=== PATIENT | male | born 1980 | race Caucasian/White ===

== ENCOUNTER 2021-05-17 10:09 | Emergency (ER) | payer SELFPAY ==
--- OUTSIDE RECORDS SUMMARY | 2021-05-17 10:12 | XMS REPORT | Continuity of Care Document ---
:1980 Author Organization [facility] t Address [address] [place] [address] Care Team Providers Name Role Phone Ramu MARQUEZ Attending Clinician Unavailable LIAM Attending Clinician Unavailable Bladimir WEBB Admitting Clinician Unavailable LIAM Admitting Clinician Unavailable Problems This patient has no known problems. Allergies, Adverse Reactions, Alerts This patient has no known allergies or adverse reactions. Medications This patient has no known medications. Procedures This patient has no known procedures. Encounters Start End Encounter Admission Attending Care Care Encounter Source Date/Time Date/Time Type Type Clinicians Facility Department ID 2021-04-26 [facility] [id number] [facility] 02:44: Health 2021-04-26 [facility] [id number] [facility] 02:44: S Health Results Test Description Test Time Test Comments Results Result Sour e Comments RIBS 2019-03-04 [facility] 07:35:[address] [id number] IMAGING REPORTPatient Name: JUSTIN HOUGH MDate of Service: [id number]: 39 Sex: M Order #: [id number] Room: QERDOB: 1980 X-Ray Number: [id number] Record Number: [id number] Hospital Number: [id number] Physician: Tegan LOCKE Physician: Alexandra LOCKE left RIBS.03/04/2019 1:09 AMHistory: Altercation.Technique: PA and lateral chest projections. 4 left rib views.Findings: PA and lateral views of the chest demonstrate normal heart sizeand clear lungs. No infiltrates or abnormalities are depicted. The osseousstructures appear intact.Impression:No acute-appearing cardiopulmonary abnormalities. No evidence of ribinjury.Electronicall y Signed By: Mitesh Marsh M.D., 03/04/2019 7:33 AMLegally authenticated by BEN Hopkins 2019-03-04 07:33:19 CHEST XR 2 VIEWS 2019-03-04 [facility] 07:35:[address] [id number] IMAGING REPORTPatient Name: JUSTIN HOUGH of Service: [id number]: 39 Sex: M Order #: [id number] Room: QERDOB: 1980 X-Ray Number: [id number] Record Number: [id number] Hospital Number: [id number] Physician: Tegan LOCKE Physician: Alexandra LOCKE left RIBS.03/04/2019 1:09 AMHistory: Altercation.Technique: PA and lateral chest projections. 4 left rib views.Findings: PA and lateral views of the chest demonstrate normal heart sizeand clear lungs. No infiltrates or abnormalities are depicted. The osseousstructures appear intact.Impression:No acute-appearing cardiopulmonary abnormalities. No evidence of ribinjury.Electronicall y Signed By: Mitesh Marsh M.D., 03/04/2019 7:33 AMLegally authenticated by BEN Hopkins 2019-03-04 07:33:19 CORONARY RISK 2019-02-13 05:12:00 Test Item Value Reference Range Interpretation Comme nts Triglycerides (test code = TRIG) 711 mg/dl 0-149 H Trig. Interpretation Guide: Normal: < 150 m g/dl Borderline High : 150 - 199 mg/dl High: 200 - 499 mg/dl Very High: >= 5 00 mg/dl Cholesterol (test code = CHOL) 170 mg/dl 0-200 HDL (test code = HDL) 31 mg/dl 35-86 L dLDL (test code = DILDL) 71 mg/dl 0-99 Dir ect LDL Intrepretations: Optimal: <100 mg/dl Suspect: 100 - 129 mg/dl Borderline: 130 - 159 mg/dl High: 160 - 189 mg/dl Ve ry High: >190 mg/dl Risk Factor (test code = RFACT) 5.5 0.0-5.0 H Risk Factor Men Women Risk Factor 3.4 3.3 1/ 2 Average 5.0 4.4 Average 9.6 7.1 2X A verage 24.0 11.0 3X Average vLDL (test code = VLDL) 142 mg/dl 30-60 H MRA HEAD W/O [id number] 14:02:26Episode of confusion, numbness in feet,hands and lips; HeadachesProcedure: MRA HEAD W/O CONTRASTOrder Date: 02/12/2019 7:00 AMOrdering Provider: DR NIETO [facility]OMARTHApromedica mon[facility] hospitalical Indication: [id number]: Cerebrovascular accidentComparison: NoneTechnique: 3-D [id number] MRA of the brain was obtained without theadministration of IV contrast.Findings:The petrous, cavernous, and supraclinoid internal carotid artery segments have anormal appearance bilaterally.The anteriorcerebral arteries are patent without stenosis.The middle cerebral arteries are patent without stenosis.The distal vertebral arteries are patent without stenosis.The basilar artery is patent without stenosis.The superior cerebellar arteries are patent without stenosis.The posterior cerebral arteries are patent without stenosis.There is no intracranial aneurysm. There is no arteriovenous shunting.Impression: Negative MRA of the brain.This final report was electronically signed by Dr Aquiles Macedo MD 02/12/20191:56 PMDictated By: AQUILES MACEDO.Date: 02/12/2019 13:56MRI BRAIN W/O [id number] 13:58:26 Episode of confusion, numbness in feet,hands and lips; HeadachesProcedure: MRI BRAIN W/O CONTRASTOrder Date: 02/12/2019 7:00 AMOrdering Provider: DR EMILIA GRANTpromedica monroe regional hospitalradha Indication: [id number]: Cerebrovascular accidentComparison: CT brain February 11, 2019Technique: Multiplanar MRI of the brain was obtained without the administrationof IV contrast.Findings:Ventricular size and configuration are normal. There is no midline shift orhydrocephalus.There is normal signal within the cortical salazar matter, subcortical whitematter, and periventricular white matter.Thereis normal signal within the deep salazar matter nuclei. There is normalsignal within the cerebellum. There is normal signal within the brainstem.There is no evidence of an acute infarct.There is no parenchymal hemorrhage.The pituitary gland is normal in size. There are no pineal masses.There are normal intracranial vascular flow voids.The foramen magnum is normal.The orbits are intact.Mild mucosal thickening in each maxillary sinus.There is otherwise normal signal within the paranasal sinuses.IMPRESSION :1. Negative MRI of the brain without the administration of IV contrast.This final report was electronically signed by Dr Aquiles Macedo MD 02/12/20191:51 PMDictated By: AQUILES MACEDODate: 02/12/2019 13:51US CAROTID BILAT Doppler 2019-02-12 06:24:08Procedure: US CAROTID BILAT DopplerOrder Date: 02/11/2019 11:13 PMOrdering Provider: DR NIETO [facility] Indication: [id number]: Cerebrovascular accidentComparison: NoneTECHNIQUE : Real-time cerebrovascular ultrasonography was obtained from sternalnotch to the angle of the mandible bilaterally utilizing salazar scale, color flowand spectral Doppler analysis. Systolic velocity ratios were calculatedforinternal carotid artery to common carotid artery bilaterally.FINDINGS:RIGHT CAROTID BIFURCATION: No significant atherosclerotic plaque. Peak systolicand end-diastolic velocities in the right internal carotid artery are 87 and 43cm/s. Internal carotid/common carotid ratio is 1.0. Right vertebral flow isantegrade.LEFT CAROTID BIFURCATION: No significant atherosclerotic plaque. Peak systolicand end-diastolic velocities in the left internal carotid artery are 86 and 37cm/s. Internal carotid/common c arotid ratio is 0.9. Left vertebral flow isantegrade.IMPRESSION:1. No significant atherosclerotic plaque in each carotid bulb and ICA origin.2. There is no significant stenosis (0%) at either ICA origin.3. Bilateral antegrade vertebral artery flow.This final report was electronically signed by Dr Aleksandra Alfonso MD 02/12/20196:17 AMDictated By: RICHARD ALFONSOKDate: 02/12/2019 06:17 CORONARY [id number] 05:49:00 Test Item Value Reference Range Interpretation Comments Triglycerides (test 995 mg/dl 0-149 H Trig. In terpretation code = TRIG) Guide: Nor mal: < 150 mg/dl Borderline High : 150 - 199 mg/dl High: 200 - 499 mg/dl Very High: >= 5 00 mg/dl lipemic, Cholesterol (test code 159 mg/dl 0-200 = CHOL) HDL (test code = HDL) 27 mg/dl 35-86 L dLDL (test code = 69 mg/dl 0-99 Direct LDL DILDL) Intrepretations : Optimal: <100 mg/dl Suspect: 100 - 129 mg/dl Border line: 130 - 159 mg/dl High: 160 - 189 mg/dl Very High: >1 90 mg/dl Risk Factor (test code 5.9 0.0-5.0 H Risk Factor = RFACT) Men Women R isk Factor 3.4 3.3 1/ 2 Average 5.0 4.4 Average 9.6 7.1 2X Average 24.0 11.0 3X Average vLDL (test code = 199 mg/dl 30-60 H VLDL) [id number] 11:14:00 Test Item Value Reference Range Interpretation Comments aPTT (test code = PTT) 26.4 seconds 25.3-35.7 PT AND [id number] 11:14:00 Test Item Value Reference Range Interpretation Comments Protime (test code 10.0 seconds 9.0-11.8 = PT) INR (test code = 1.0 0.9-1.1 INR results are INR) intended ONLY t o monitor Oral Anticoagulant t herapy in stablized pa tients. The INR Therape utic Range is 2.0 - 3.0 Patients with a mechanical hear t, the INR Range is 2. 5 - 3.5 PRO-BNP(B-Type Natriuretic Peptide)2019-02-11 10:10:00 Test Item Value Reference Range Interpretation Comments Pro-BNP(B-Peptide) (test code = 99 pg/ml 0-125 PROBNP) TROPONIN-I [id number] 10:10:00 Test Item Value Reference Range Interpretation Comments Troponin-I (test <0.015 ng/ml 0.000-0.034 N The 99th Pe rcentile URL code = TROP) is 0.045 ng/mL for the Siemens [place] T roponin I. The Joint [employer] pean Society of Cardiology/[facility] College of Card iology (ESC/ACC) and t he National Academ y of Clinical [place] evin Standards of La boratory Practices (NACB ) recommends that the diagnosis of AM I includes the presence of clinical history suggest scooter of Acute Coronary Syndrome (ACS) and a max imum concentration o f cardiac troponin exceed ing the 99th percentile of a normal referenc e population [upp er reference limit (URL)] on at least one oc casion during the firs t 24 hours after the clini caridad event. [id number] 10:10:00 Test Item Value Reference Range Interpretation Comments Glucose (test code 99 mg/dl 75-110 = GLU) BUN (test code = 10.0 mg/dl 6.0-17.0 BUN) Creatinine (test 1.1 mg/dl 0.4-1.2 code = CREA) Sodium (test code = 140 mmol/l 137-145 NA) Potassium (test 4.1 mmol/l 3.5-5.0 code = K) Chloride (test code 106 mmol/l 98-107 = CL) CO2 (test code = 29 mmol/l 22-30 CO2) Calcium (test code 9.0 mg/dl 8.4-10.2 = CALC) T Protein (test 7.3 gm/dl 5.1-8.7 code = TP) Albumin (test code 3.9 gm/dl 3.5-4.6 = ALB) A/G Ratio (test 1.1 % 1.1-2.2 code = AGRAT) AST (SGOT) (test 28 U/L 11-36 code = AST) ALT (SGPT) (test 49 U/L 11-40 H code = ALT) Alkaline Phos (test 91 U/L 47-114 code = ALKP) Total Bilirubin 0.4 mg/dl 0.2-1.2 (test code = TBIL) Globulin (test code 3.4 gm/dl 2.3-3.5 = GLOBU) Calcium, Corrected 9.1 mg/dl 8.4-10.2 Various f ormulas exist (test code = for corrected s marc CALCCORR) calcium results , each yielding differ ent values. This corrected resul t was based on the fo rmula: Corrected Calci um = SerumCalcium + [0.8 * ( 4 - SerumAlbu min)] EGFR if >60 Jamaican (test code mL/min/1.73m\\ = EGFRAA) S\\2 EGFR if Non- >60 Estimate d Glomerular Jamaican (test code mL/min/1.73m\\ Filtrat ion Rate (eGFR) = EGFRNA) S\\2 Reference Inter vals Decision Points for 18 years and older and average body ma ss: >= 60 Does not exc lude kidney disease. 30 - 59 Suggests modera te chronic kidney disease and indicat es the need for furthe r investigation including asses sment of proteinuria and cardiovascular factors. < 30 Usually in dicates a need for refe rral for assessment and management of c hronic kidney failure. URINALYSIS WITH [id number] 10:06:00 Test Item Value Reference Range Interpretation Comments Color (test code = UCOLR) Yellow Clarity (test code = UCLAR) Clear Glucose (test code = UGLUC) NEGATIVE NEGATIVE N Bilirubin (test code = UBILI) NEGATIVE NEGATIVE N Ketones (test code = UKET) NEGATIVE NEGATIVE N Specific [place] (test code = 1.015 1.005-1.030 A USPGR) Blood (test code = UBLD) NEGATIVE NEGATIVE N PH (test code = UPH) 7.5 4.5-8.0 A Protein (test code = UPROT) NEGATIVE NEGATIVE N Urobilinogen (test code = U UROB) 0.2 >0.2 N Nitrite (test code = UNITR) NEGATIVE NEGATIVE N Leukocyte Esterase (test code = NEGATIVE NEGATIVE N ULEUK) WBC (test code = WBCUR) 0-1 0-5 A RBC (test code = RBCUR) None Seen 0-5 A Epithial Cells (test code = U EPI) None Seen 0-10 A Mucous (test code = UMUC) None Seen None Seen N Bacteria (test code = UBACT) None Seen None Seen,Trace N Crystals Urine (test code = URCRYS) None Seen None Seen N [id number] 10:02:00 Test Item Value Reference Range Interpretation Comments Magnesium (test code = MG) 2.2 mg/dl 1.6-2.3 DRUG SCREEN [id number] 09:50:00 Test Item Value Reference Range Interpretation Comments FT (test code Negative = AMPHET) (qualifier value) FT (test code Negative = JETT) (qualifier value) FT (test code Negative = BENZO) (qualifier value) FT (test code Negative = CHELSEY) (qualifier value) FT (test code Negative = MTD) (qualifier value) FT (test code Negative = OPIAT) (qualifier value) FT (test code Negative The following table = PCP) (qualifier value) provides a n interpretive guide for the D rugs of Abuse ran on th e Siemens [place] analyzer listed there in: Amphetamines < 1000 ng/ml = Negati ve Barbituates < 200 ng/ml = Negati ve Benzodiazapines < 200 ngml = Negati ve Cocaine < 300 ng/ml = Negati ve Methadone < 300 ng/ml = Negati ve Opiate < 300 ng/ml = Negati ve PCP < 25 ng/ml = Negati ve THC < 50 ng/ml = Negati ve Results equal t o or greater than th e above cut-off values = Presumptive Pos itive. Confirmation of Presumptive Pos itive results are ame ilable upon request. FT (test code Negative = THC) (qualifier value) CT HEAD W/O [id number] 09:41:03CT HEAD WITHOUT CONTRAST:DATE OF EXAM: 02/11/2019INDICATION: Altered mental statusNoncontrast CT head was performed. Dose reduction technique was employed usingautomated exposure control and adjustmentof mA and/or kV according to patientsize. Total DLP 921 mGy- cm.FINDINGS:No intracranial hemorrhage,mass effect or midline shift is identified. Theventricular system is normal in size and configuration. The basal cisterns arepatent.The visualized portions of the mastoids, paranasal sinuses and orbitsshow nosignificant abnormality.IMPRESSION:Negative CT head without contrast.This final report was electronically signed by Dr Luciano Dickens MD 02/11/20199:34 AMDictated By: LUCIANO DICKENSDate: 02/11/2019 09:34XR CHEST AP/PA 1 [id number] 09:39:54Exam: AP portable chestDATE OF EXAM: 02/11/2019 9:15 AMINDICATION: DyspneaThe lungs are clear. The cardiomediastinal silhouette is within normal limits.The bony thorax shows no significant abnormality.Im pression:No active cardiopulmonary disease.This final report was electronically signed by Dr Raiza HUNTER 02/11/20199:33 AMDictated By: LUCIANO DICKENSDate: 02/11/2019 09:33CBC WITH AUTO [id number] 09:04:00 Test Item Value Reference Range Interpretation Comments WBC (test code = 8.41 10\\S\\3/ul 4.80-10.80 WBC) RBC (test code = 4.85 10\\S\\6/ul 4.70-6.10 RBC) Hemoglobin (test 15.2 gm/dl 14.0-18.0 code = HGB) Hematocrit (test 43.8 % 42.0-50.0 code = HCT) MCV (test code = 90.3 fL 80.0-94.0 MCV) MCH (test code = 31.3 pg 27.0-31.0 H MCH) MCHC (test code = 34.7 gm/dl 33.0-37.0 MCHC) RDW (test code = 12.2 % 11.5-14.5 RDWVC) Platelet (test code 251 10\\S\\3/ul 130-400 = PLT) MPV (test code = 9.8 fL 7.4-10.4 A "NOT MEASUR ED" MPV) RESULTS ARE DIS PLAYED WHEN THE INSTRU MENT HAS A SUPPRESSE D OR UNREPORTABLE RE SULT. THIS WILL MOST OFTEN HAPPEN WITH THE MPV WHEN THERE IS A N ABNORMAL PLATEL ET DISTRIBUTION DU E TO A CRITICAL LOW VA LUE OR PLATELET CLUMPI NG. THE RDW MAY BE SUPPRESSED IF T HERE ARE MULTIPLE PE AKS PRESENT ON THE RBC HISTOGRAM. IN THIS CASE, A MANUAL REVIEW OF THE SLIDE WI LL BE PERFORMED, AND RBC MORPHOLOGY WILL BE NOTED ON THE RE PORT. NE% (test code = 72.6 % 42.0-75.0 NE) LY% (test code = 17.5 % 13.0-42.0 LY) MO% (test code = 7.5 % 4.0-14.0 MO) EO% (test code = 1.2 % 1.0-5.0 EO) BA% (test code = 0.6 % 0.0-3.0 BA) IG% (test code = 0.6 % 0.0-0.4 H IG%)
[2021-05-17] MEDS ORDERED: dexAMETHasone 4 MG/ML VIAL ONE (10:50)
[2021-05-17] MEDS ORDERED: KETOROLAC 30 MG/ML INJ ONE (10:50)
--- NOTE | 2021-05-17 11:03 | ER ---
Nurse's Notes [facility] Name: Shane Vela Age: 41 yrs Sex: Male : 1980 Arrival Date: 05/17/2021 Time: 10:12 Bed 12 Private MD: Diagnosis: Low back pain Presentation: 05/17 10:22 Chief complaint: Patient states: he was moving last when he felt like he ap3 pulled a muscle. Coronavirus screen: At this time, the client does not indicate any symptoms associated with coronavirus-19. Ebola Screen: No symptoms or risks identified at this time. Initial Sepsis Screen: Does the patient meet any 2 criteria? No. Patient's initial sepsis screen is negative. Does the patient have a suspected source of infection? No. Patient's initial sepsis screen is negative. Risk Assessment: Do you want to hurt yourself or someone else? Patient reports no desire to harm self or others. Onset of symptoms was May 13, 2021. 10:22 Method Of Arrival: Ambulatory ap3 10:22 Acuity: NENITA 4 ap3 Triage Assessment: 10:25 General: Appears uncomfortable, Behavior is calm, cooperative. Pain: Complains of pain ap3 in back and left mid back and left low back. Neuro: Level of Consciousness is awake, alert, obeys commands, Oriented to person, place, time, situation, Appropriate for age. Cardiovascular: Patient's skin is warm and dry. Respiratory: Airway is patent Respiratory effort is even, unlabored, Respiratory pattern is regular, symmetrical. Musculoskeletal: Range of motion: intact in all extremities. Historical: - Allergies: 10:24 PENICILLINS; ap3 - Home Meds: 10:24 None [Active]; ap3 - PMHx: 10:24 None; ap3 - Immunization history:: Adult Immunizations up to date, Client reports having NOT received the Covid vaccine. - Social history:: Smoking status: Patient reports the use of cigarette tobacco products, smokes one pack cigarettes per day. Patient uses alcohol, occasionally. Screenin:26 Abuse screen: Denies threats or abuse. Nutritional screening: No deficits noted. ap3 Tuberculosis screening: No symptoms or risk factors identified. Fall Risk Gait- Weak (10 pts.). Assessment: 10:26 Reassessment: please see triage assessment. Neuro: Level of Consciousness is awake, ap3 alert, obeys commands, Oriented to person, place, time, situation, Appropriate for age. Vital Signs: 10:22 BP 117 / 71; Pulse 80; Resp 18; Temp 98.1(TE); Pulse Ox 100% ; Weight 86.18 kg; Height ap3 6 ft. 0 in. (182.88 cm); Pain 2/10; 10:22 Body Mass Index 25.77 (86.18 kg, 182.88 cm) ap3 ED Course: 10:12 Patient arrived in ED. mr 10:17 Triage completed. tw2 10:19 Arm band placed on. tw2 10:22 Elvin Chou PA is PHCP. haris 10:22 Chava Gautam MD is Attending Physician. haris 10:22 Meenu Garcia, FRANKIE is Primary Nurse. ap3 10:27 Patient has correct armband on for positive identification. Bed in low position. Call ap3 light in reach. Adult w/ patient. Pulse ox on. NIBP on. Door closed. Noise minimized. 11:15 No provider procedures requiring assistance completed. Patient did not have IV access ap3 during this emergency room visit. Administered Medications: 10:58 Drug: Decadron (dexamethasone) 10 mg Route: IM; Site: left gluteus; ap3 11:12 Follow up: Response: No adverse reaction ap3 10:58 Drug: Ketorolac 30 mg Route: IM; Site: right deltoid; ap3 11:12 Follow up: Response: No adverse reaction; Pain is decreased ap3 Outcome: 11:02 Discharge ordered by . haris 11:15 Discharged to home ambulatory, with family. ap3 11:15 Condition: good 11:15 Discharge instructions given to patient, Instructed on discharge instructions, follow up and referral plans. medication usage, Demonstrated understanding of instructions, follow-up care, medications, Prescriptions given X 3. 11:15 Patient left the ED. ap3 Signatures: Elvin Chou PA PA jmm Rivera, Mary Aruna Salas, RN RN tw2 Meenu Garcia RN RN ap3 Corrections: (The following items were deleted from the chart) 10:21 10:17 Chief complaint: tw2 tw2 10:21 10:17 Note pt drinking Red bull in triage. tw2 tw2 10:21 10:17 Chief complaint: Patient states: i think i have a urinary track infection. it tw2 [place] when i pee. it has been going on a week. and i have a sharp stabbing pain in the left side of my back tw2 10:17 Risk Assessment: Do you want to hurt yourself or someone else? Patient reports no tw2 desire to harm self or others. 10:17 Onset of symptoms was May 17, 2021 tw2 10:17 Acuity: NENITA 3 tw2 10:17 Method Of Arrival: Ambulatory tw 10:19 General: Appears in no apparent distress. Behavior is calm, cooperative, tw2 appropriate for age, 10:19 Pain: Complains of pain in left low back and left mid back tw2 10:19 : Reports burning with urination, tw2 10:19 GI: Reports nausea, tw2 10:19 Musculoskeletal: Range of motion: intact in all extremities, tw 10:17 Allergies: Bactrim DS; "itching, mouth drooping"; tw 10:17 Home Meds: clonazepam 0.5 mg Oral TbDi 1 tab once a day; 10:17 Home Meds: Prozac 20 mg Oral cap 1 cap once daily; tw 10:17 PMHx: Depressive disorder; tw 10:17 PMHx: Anxiety; tw 10:17 PSHx: section; tw 10:17 Immunization history: Client reports having NOT received the Covid vaccine. tw 10:17 Social history: Smoking status: Patient reports the use of cigarette tobacco tw2 products, smokes one-half pack cigarettes per day, 10:24 Allergies: No Known Allergies; ap3 ap3
--- NOTE | 2021-05-17 11:03 | EDPHYS ---
Physician Documentation [facility] Name: Shane Vela Age: 41 yrs Sex: Male : 1980 Arrival Date: 05/17/2021 Time: 10:12 Bed 12 Private MD: ED Physician Chava Gautam HPI: 05/17 10:37 This 41 yrs old Male presents to ER via Ambulatory with complaints of Pain jmm With Urination. 10:37 The patient presents with pain that is acute. Onset: The symptoms/episode jmm began/occurred acutely, 1 week(s) ago. The pain does not radiate. Associated signs and symptoms: Pertinent negatives: fever, weakness. This is a 41-year-old male with no chronic medical conditions presents emerged department with complaints of lower back pain which occurred after he was lifting a vacuum. Patient states pain is mainly on the left lower side. Does not radiate. Patient denies any bowel or bladder issues. Denies weakness in his legs or numbness. Patient denies fever, vomiting.. Historical: - Allergies: 10:24 PENICILLINS; ap3 - Home Meds: 10:24 None [Active]; ap3 - PMHx: 10:24 None; ap3 - Immunization history:: Adult Immunizations up to date, Client reports having NOT received the Covid vaccine. - Social history:: Smoking status: Patient reports the use of cigarette tobacco products, smokes one pack cigarettes per day. Patient uses alcohol, occasionally. ROS: 10:37 Constitutional: Negative for fever, chills, and weight loss, Cardiovascular: Negative jmm for chest pain, palpitations, and edema, Respiratory: Negative for shortness of breath, cough, wheezing, and pleuritic chest pain. 10:37 Back: Positive for pain with movement. 10:37 All other systems are negative. Exam: 10:37 Constitutional: This is a well developed, well nourished patient who is awake, alert, jmm and in no acute distress. Head/Face: atraumatic. Eyes: EOMI, no conjunctival erythema appreciated ENT: Moist Mucus Membranes Neck: Trachea midline, Supple Chest/axilla: Normal chest wall appearance and motion. Cardiovascular: Regular rate and rhythm. No edema appreciated Respiratory: Normal respirations, no respiratory distress appreciated Abdomen/GI: Non distended, soft 10:37 Skin: General appearance color normal MS/ Extremity: Moves all extremities, no obvious deformities appreciated, no edema noted to the lower extremities Neuro: Awake and alert, normal gait Psych: Behavior is normal, Mood is normal, Patient is cooperative and pleasant 10:37 Back: vertebral tenderness, is not appreciated, muscle spasm, is appreciated in the left low back. Vital Signs: 10:22 BP 117 / 71; Pulse 80; Resp 18; Temp 98.1(TE); Pulse Ox 100% ; Weight 86.18 kg; Height ap3 6 ft. 0 in. (182.88 cm); Pain 08/12; 10:22 Body Mass Index 25.77 (86.18 kg, 182.88 cm) ap3 MDM: 10:37 Patient medically screened. [facility] 11:01 Data reviewed: vital signs, nurses notes. Counseling: I had a detailed discussion with miguel the patient and/or guardian regarding: the historical points, exam findings, and any diagnostic results supporting the discharge/admit diagnosis, the need for outpatient follow up, to return to the emergency department if symptoms worsen or persist or if there are any questions or concerns that arise at home. ED course: Physical exam physical exam findings appear consistent with muscle spasm. I do not suspect cord compression, cauda equina, spinal abscess. Patient is alert nontoxic in appearance in the ED. Advised to follow-up PCP and otherwise given strict return precautions. Patient understood and agrees to plan of care.. Administered Medications: 10:58 Drug: Decadron (dexamethasone) 10 mg Route: IM; Site: left gluteus; ap3 11:12 Follow up: Response: No adverse reaction ap3 10:58 Drug: Ketorolac 30 mg Route: IM; Site: right deltoid; ap3 11:12 Follow up: Response: No adverse reaction; Pain is decreased ap3 Disposition: 15:23 Co-signature as Attending Physician, Chava Gautam MD I agree with the assessment and rn plan of care. Attestation: The patient's history, exam findings, diagnostics, and a summary of any interventions or procedures was reviewed in detail with Elvin SMITH. Disposition Summary: 05/17/21 11:02 Discharge Ordered Location: Home [facility] Condition: Stable [facility] Diagnosis - Low back pain [facility] Followup: [facility] - With: Private Physician - When: 2 - 3 days - Reason: Recheck today's complaints, Continuance of care, Re-evaluation by your physician Discharge Instructions: - Discharge Summary Sheet jmm - Acute Back Pain, Adult [facility] Forms: - Medication Reconciliation Form [facility] - Thank You Letter jmm - Antibiotic Education jmm - Prescription Opioid Use jmm - Blank Medication ap3 - Work release form ap3 Prescriptions: - orphenadrine citrate 100 mg Oral Tablet Sustained Release - take 1 tablet by ORAL route 2 times per day As needed; 20 tablet; Refills: 0, [facility] Product Selection Permitted - Ibuprofen 800 mg Oral Tablet - take 1 tablet by ORAL route every 8 hours As needed take with food; 30 tablet; jmm Refills: 0, Product Selection Permitted - Voltaren 1 % Topical gel - apply 2 gram by TOPICAL route 4 times per day; 4 gram; Refills: 0, Product [facility] Selection Permitted Signatures: Elvin Chou PA PA Chava Loza MD MD rn Wise, Tara, RN RN Meenu Garcia RN RN ap3 Corrections: (The following items were deleted from the chart) 10: Allergies: Bactrim DS; "itching, mouth drooping"; 10:17 Home Meds: clonazepam 0.5 mg Oral TbDi 1 tab once a day; 10: Home Meds: Prozac 20 mg Oral cap 1 cap once daily; 10: PMHx: Depressive disorder; 10: PMHx: Anxiety; 10: PSHx: section; 10:17 Immunization history: Client reports having NOT received the Covid vaccine. 10:17 Social history: Smoking status: Patient reports the use of cigarette tobacco tw2 products, smokes one-half pack cigarettes per day, 10:24 Allergies: No Known Allergies; ap3 ap3
== END 2021-05-17 11:15 | disposition home or self-care (01) ==
LOC: ER 10:09
DX: M54.50 Low back pain, unspecified (principal); F17.210 Nicotine dependence, cigarettes, uncomplicated; Z88.0 Allergy status to penicillin
CPT/HCPCS: 96372; 99283; J1100

== ENCOUNTER 2025-04-11 09:18 | Emergency (ER) | payer BC, SELFPAY ==
--- OUTSIDE RECORDS SUMMARY | 2025-04-11 09:21 | XMS REPORT | Continuity of Care Document ---
Author Name Unknown Address [address] [place] [address] [address] [place] [address] [facility] Address [address] [facility] [address] [place] [address] Care Team Providers Care Diffusion Furnace Operator Name Role Phone ZABRINA MARQUEZ Attending Clinician Unavailable RONNI WHEELER Attending Clinician Unavailable EMILIA WEBB Admitting Clinician Unavailable RONNI WHEELER Admitting Clinician Unavailable Encounters Start Date/Time End Date/Time Encounter Type Admission Type Attending Clinicians Care Facility Care Department Encounter ID Source 2021-04-26 02:44:15 [facility] [id number] [facility] 2021-04-26 02:44:15 [facility] [id number] [facility] Results Test Description Test Time Test Comments Results Resul t Comments Source RIBS 2019-03-04 07:35:[address] [id number] REPORTPatient Name: JUSTIN HOUGH MDate of Service: [id number]: 39 Sex: M Order #: [id number] Room: ERDOB: 1980 X-Ray Number: [id number] Record Number: [id number] Hospital Number: [id number] Physician: Tegan LOCKE Physician: Alexandra LOCKE left [...] 2019-03-04 07:33:19 CHEST XR 2 VIEWS 2019-03-04 07:35:[address] [id number] REPORTPatient Name: JUSTIN HOUGH of Service: [id number]: 39 Sex: M Order #: [id number] Room: QERDOB: 1980 X-Ray Number: [id number] Record Number: [id number] Hospital Number: [id number] Physician: Maninder LOCKEing Physician: Alexandra LOCKE, left RIBS.03/04/2019 1:09 AMHistory: Altercation.Technique: PA and lateral chest projections. 4 left rib views.Findings: PA and lateral views of the chest demonstrate normal heart sizeand clear lungs. No infiltrates or abnormalities are depicted. The osseousstructures appear intact.Impression:No acute-appearing cardiopulmonary abnormalities. No evidence of ribinjury.Electronicall y Signed By: Mitesh Marsh M.D., 03/04/2019 7:33 AMLegally authenticated by BEN Hopkins 2019-03-04 07:33:19 [facility] HEAD W/O [id number] 14:02:26Episode of confusion, numbness in feet,hands and lips; HeadachesProcedure: MRA HEAD W/O CONTRASTOrder Date: 02/12/2019 7:00 AMOrdering Provider: DR NIETO [facility] Indication: [id number]: Cerebrovascular accidentComparison: NoneTechnique: 3-D [id number] MRAof the brain was obtained without theadministration of IV contrast.Findings:The petrous, cavernous,and supraclinoid internal carotid artery segments have anormal appearance bilaterally.The anterior cerebral arteries are patent without stenosis.The middle cerebral [...] Aquiles Macedo MD 02/12/20191:56 PMDictated By: AQUILES MACEDODate: 02/12/2019 13:56[facility] BRAIN W/O CONTRAST 2019-02-12 13:58:26Episode of confusion, numbness in feet,hands and lips; HeadachesProcedure: MRI BRAIN W/O CONTRASTOrder Date: 02/12/2019 7:00 AMOrdering Provider: DR EMILIA Dubonical Indication: [id number]: Cerebrovascular accidentComparison: CT brain February 11, 2019Technique: Multiplanar MRI of the brain was obtained without the administrationof IV contrast.Findings:Ventricular size and configuration are normal. There is no midline shift orhydrocephalus.There is normal signal within the cortical salazar matter, subcortical whitematter, and periventricular white matter.There is normal signal within the deep salazar matter nuclei. There is normalsignal within the cerebellum. There is normal signal within the brainstem.There is no evidence of an acute infarct.There is no parenchymal hemorrhage.The pituitary gland is normal in size. There are no pineal masses.There are normalintracranial vascular flow voids.The foramen magnum is normal.The orbits are intact.Mild mucosal thickening in each maxillary sinus.There is otherwise normal signal within the paranasal sinuses.IMPRESSION:1. Negative MRI of the brain without the administration of IV contrast.This final report was electronically signed by Dr Aquiles Macedo MD 02/12/20191:51 PMDictated By: AQUILES MACEDODate: 02/12/2019 13:51[facility] CAROTID BILAT [id number] 06:24:08Procedure: CAROTID BILAT DopplerOrder Date: 02/11/2019 11:13 PMOrdering Provider: DR EMILIA Borges Indication: [id number]: Cerebrovascular accidentComparison: NoneTECHNIQUE : Real- time cerebrovascular ultrasonography was obtained from sternalnotch to the angle of the mandible bilaterally utilizing salazar scale, color flowand spectral Doppler analysis. Systolic velocity ratios were calculatedforinternal carotid artery to common carotid artery bilaterally.FINDINGS:RIGHT CAROTID BIFURCATION:No significant atherosclerotic plaque. Peak systolicand end-diastolic velocities in the right internal carotid artery are 87 and 43cm/s. Internal carotid/common carotid ratio is 1.0. Right vertebral flow isantegrade.LEFT CAROTID BIFURCATION: No significant atherosclerotic plaque. Peak systolicand end-diastolic velocities in the left internal carotid artery are 86 and 37cm/s. Internal carotid/common carotid ratio is 0.9. Left vertebral flow isantegrade.IMPRESSION:1. No significant atherosclerotic plaque in each carotid bulb and ICA origin.2. There is no significant stenosis (0%) at either ICA origin.3. Bilateral antegrade vertebral artery flow.This final report was electronically signed by Dr Aleksandra Alfonso MD 02/12/20196:17 AMDictated By: RICHARD ALFONSOKDate: 02/12/2019 06:17[facility]2019-08-13 05:49:00* Test Item Value Reference Range Interpretation Comme nts Triglycerides (test code = TRIG) 995 mg/dl 0-149 H Trig. Interpreta tion Guide: Normal: < 150 mg/dl Borderline High: 150 - 199 mg/dl High: 200 - 499 mg/dl Very High: >= 500 mg/dl lipemic, Cholesterol (test code = CHOL) 159 mg/dl 0-200 HDL (test code = HDL) 27 mg/dl 35-86 L dLDL (test code = DILDL) 69 mg/dl 0-99 Direct LDL Intrepretations: Optimal: <100 mg/dl Suspect: 100 - 129 mg/dl Borderline: 130 - 159 mg/dl High: 160 - 189 mg/dl Very High: >190 mg/dl Risk Factor (test code = RFACT) 5.9 0.0-5.0 H Risk Factor Men Women Risk Factor 3.4 3.3 1/2 Average 5.0 4.4 Average 9.6 7.1 2X Average 24.0 11.0 3X Average vLDL (test code = VLDL) 199 mg/dl 30-60 H [id number] 11:14:00* Test Item Value Reference Range Interpretation Comme nts aPTT (test code = PTT) 26.4 seconds 25.3-35.7 [facility] AND [id number] 11:14:00* Test Item Value Reference Range Interpretation Comme nts Protime (test code = PT) 10.0 seconds 9.0-11.8 INR (test code = INR) 1.0 0.9-1.1 INR results are intended ONLY to monitor Oral Anticoagulant therapy in stablized patients. The INR Therapeutic Range is 2.0 - 3.0 Patients with a mechanical heart, the INR Range is 2.5 - 3.5 [facility] Hospital[facility]-BNP(B-Type Natriuretic Peptide)2019-02-11 10:10:00* Test Item Value Reference Range Interpretation Comme nts Pro-BNP(B-Peptide) (test cod e = PROBNP) 99 pg/ml 0-125 [facility] HospitalTROPONIN-I [id number] 10:10:00* Test Item Value Reference Range Interpretation Comme nts Troponin-I (test code = TROP) <0.015 ng/ml 0.000-0.034 N The 99th Percent ile URL is 0.045 ng/mL for the Siemens [place]ola Troponin I. The Joint Society of Cardiology/[place] College [employer] Cardiology (ESC/ACC) and the National Academy of Clinical Biochemistry Standards of Laboratory Practices (NACB) recommends that the diagnosis of AMI includes the presence of clinical history suggestive of Acute Coronary Syndrome (ACS) and a maximum concentration of cardiac troponin exceeding the 99th percentile of a normal reference population [upper reference limit (URL)] on at least one occasion during the first 24 hours after the clinical event. [facility] HospitalCMP2019-08-12 10:10:00* Test Item Value Reference Range Interpretation Comme nts Glucose (test code = GLU) 99 mg/dl 75-110 BUN (test code = BUN) 10.0 mg/dl 6.0-17.0 Creatinine (test code = CREA) 1.1 mg/dl 0.4-1.2 Sodium (test code = NA) 140 mmol/l 137-145 Potassium (test code = K) 4.1 mmol/l 3.5-5.0 Chloride (test code = CL) 106 mmol/l 98-107 CO2 (test code = CO2) 29 mmol/l 22-30 Calcium (test code = CALC) 9.0 mg/dl 8.4-10.2 T Protein (test code = TP) 7.3 gm/dl 5.1-8.7 Albumin (test code = ALB) 3.9 gm/dl 3.5-4.6 A/G Ratio (test code = AGRAT) 1.1 % 1.1-2.2 AST (SGOT) (test code = AST) 28 U/L 11-36 ALT (SGPT) (test code = ALT) 49 U/L 11-40 H Alkaline Phos (test code = ALKP) 91 U/L 47-114 Total Bilirubin (test code = TBIL) 0.4 mg/dl 0.2-1.2 Globulin (test code = GLOBU) 3.4 gm/dl 2.3-3.5 Calcium, Corrected (test code = CALCCORR) 9.1 mg/dl 8.4-10.2 Various formulas exist for corrected serum calcium results, each yielding different values. This corrected result was based on the formula: Corrected Calcium = SerumCalcium + [0.8 * ( 4 - SerumAlbumin)] EGFR if (test code = EGFRAA) >60 mL/min/1.73m\\ S\\2 EGFR if Non- (test code = EGFRNA) >60 mL/min/1.73m\\ S\\2 Estimated Glomerular Filtration Rate (eGFR) Reference Intervals Decision Points for 18 years and older and average body mass: >= 60 Does not exclude kidney disease. 30 - 59 Suggests moderate chronic kidney disease and indicates the need for further investigation including assessment of proteinuria and cardiovascular factors. < 30 Usually indicates a need for referral for assessment and management of chronic kidney failure. [facility] WITH [id number] 10:06:00 * Test Item Value Reference Range Interpretation Comme nts Color (test code = UCOLR) Yellow Clarity (test code = UCLAR) Clear Glucose (test code = UGLUC) NEGATIVE NEGATIVE N Bilirubin (test code = UBILI) NEGATIVE NEGATIVE N Ketones (test code = UKET) NEGATIVE NEGATIVE N Specific Trent (test code = USPGR) 1.015 1.005-1.030 A Blood (test code = UBLD) NEGATIVE NEGATIVE N PH (test code = UPH) 7.5 4.5-8.0 A Protein (test code = UPROT) NEGATIVE NEGATIVE N Urobilinogen (test code = U UROB) 0.2 >0.2 N Nitrite (test code = UNITR) NEGATIVE NEGATIVE N Leukocyte Esterase (test cod e = ULEUK) NEGATIVE NEGATIVE N WBC (test code = WBCUR) 0-1 0-5 A RBC (test code = RBCUR) None Seen 0-5 A Epithial Cells (test code = U EPI) None Seen 0-10 A Mucous (test code = UMUC) None Seen None Seen N Bacteria (test code = UBACT) None Seen None Seen,Trace N Crystals Urine (test code = URCRYS) None Seen None Seen N [facility] HospitalMAGNESIUM2019-08-12 10:02:00* Test Item Value Reference Range Interpretation Comme nts Magnesium (test code = MG) 2.2 mg/dl 1.6-2.3 [facility] HospitalDRUG SCREEN [id number] 09:50:00* Test Item Value Reference Range Interpretation Comme nts FT (test code = AMPHET) Negative (qualifier value) FT (test code = JETT) Negative (qualifier value) FT (test code = BENZO) Negative (qualifier value) FT (test code = CHELSEY) Negative (qualifier value) FT (test code = MTD) Negative (qualifier value) FT (test code = OPIAT) Negative (qualifier value) FT (test code = PCP) Negative (qualifier value) The following table provides an interpretive guide for the Drugs of Abuse ran on the Siemens C[employer]ola analyzer listed there in: Amphetamines < 1000 ng/ml = Negative Barbituates < 200 ng/ml = Negative Benzodiazapines < 200 ngml = Negative Cocaine < 300 ng/ml = Negative Methadone < 300 ng/ml = Negative Opiate < 300 ng/ml = Negative PCP < 25 ng/ml = Negative THC < 50 ng/ml = Negative Results equal to or greater than the above cut-off values = Presumptive Positive. Confirmation of Presumptive Positive results are available upon request. FT (test code = THC) Negative (qualifier value) [facility] HospitalCT HEAD W/O [id number] 09:41:03CT HEAD WITHOUT CONTRAST:DATE OF EXAM: 02/11/2019INDICATION: Altered mental statusNoncontrast CT head was performed. Dose reduction technique was employed usingautomated exposure control and adjustment of mA and/or kV according to patientsize. Total DLP 921 mGy-cm.FINDINGS:No intracranial hemorrhage, mass effect or midline shift is identified. Theventricular system is normal in size and configuration. The basal cisterns arepatent.The visualized portions of the mastoids, paranasal sinuses and orbits show nosignificant abnormality.IMPRESSION:Negative CT head without contrast.This final report was electronically signed by Dr Luciano Dickens MD 02/11/20199:34 AMDictated By: LUCIANO DICKENSDate: 02/11/2019 09:34[facility] CHEST AP/PA 1 VIEW 2019-02-11 09:39:54Exam: AP portable chestDATE OF EXAM: 02/11/2019 9:15 AMINDICATION: DyspneaThe lungs are clear. The cardiomediastinal silhouette is within normal limits.The bony thorax shows no significant abnormality. Impression:No active cardiopulmonary disease.This final report was electronically signed by Dr Luciano Dickens MD 02/11/20199:33 AMDictated By: LUCIANO DICKENSDate: 02/11/2019 09:33[facility] WITH AUTO [id number] 09:04:00* Test Item Value Reference Range Interpretation Comme nts WBC (test code = WBC) 8.41 10\\S\\3/ul 4.80-10.80 RBC (test code = RBC) 4.85 10\\S\\6/ul 4.70-6.10 Hemoglobin (test code = HGB) 15.2 gm/dl 14.0-18.0 Hematocrit (test code = HCT) 43.8 % 42.0-50.0 MCV (test code = MCV) 90.3 fL 80.0-94.0 MCH (test code = MCH) 31.3 pg 27.0-31.0 H MCHC (test code = MCHC) 34.7 gm/dl 33.0-37.0 RDW (test code = RDWVC) 12.2 % 11.5-14.5 Platelet (test code = PLT) 251 10\\S\\3/ul 130-400 MPV (test code = MPV) 9.8 fL 7.4-10.4 A "NOT MEASURED" RESULTS ARE DISPLAYED WHEN THE INSTRUMENT HAS A SUPPRESSED OR UNREPORTABLE RESULT. THIS WILL MOST OFTEN HAPPEN WITH THE MPV WHEN THERE IS AN ABNORMAL PLATELET DISTRIBUTION DUE TO A CRITICAL LOW VALUE OR PLATELET CLUMPING. THE RDW MAY BE SUPPRESSED IF THERE ARE MULTIPLE PEAKS PRESENT ON THE RBC HISTOGRAM. IN THIS CASE, A MANUAL REVIEW OF THE SLIDE WILL BE PERFORMED, AND RBC MORPHOLOGY WILL BE NOTED ON THE REPORT. NE% (test code = NE) 72.6 % 42.0-75.0 LY% (test code = LY) 17.5 % 13.0-42.0 MO% (test code = MO) 7.5 % 4.0-14.0 EO% (test code = EO) 1.2 % 1.0-5.0 BA% (test code = BA) 0.6 % 0.0-3.0 IG% (test code = IG%) 0.6 % 0.0-0.4 H [facility]
--- NOTE | 2025-04-11 10:00 | ER ---
Nurse's Notes [facility] Name: Shane Vela Age: 45 yrs Sex: Male : 1980 Arrival Date: 04/11/2025 Time: 09:18 Bed 4 Private MD: Diagnosis: Gout, unspecified Presentation: 04/11 09:30 Chief complaint: Patient states: gout flare up in both feet, started hurting last iw night. Coronavirus screen: At this time, the client does not indicate any symptoms associated with coronavirus-19. Ebola Screen: No symptoms or risks identified at this time. Initial Sepsis Screen: Does the patient meet any 2 criteria? No. Patient's initial sepsis screen is negative. Does the patient have a suspected source of infection? No. Patient's initial sepsis screen is negative. Risk Assessment: Do you want to hurt yourself or someone else? Patient reports no desire to harm self or others. Onset of symptoms was April 10, 2025. 09:30 Method Of Arrival: Ambulatory iw 09:30 Acuity: NENITA 3 iw Historical: - Allergies: 09:31 PENICILLINS; iw - PSHx: : knee; iw - Immunization history:: Adult Immunizations. - Infectious Disease History:: Denies. - Social history:: Smoking status: Patient denies any tobacco usage or history of. Screenin:45 [facility] ED Fall Risk Assessment (Adult) History of falling in the last 3 months, ar8 including since admission No falls in past 3 months (0 pts) Confusion or Disorientation No (0 pts) Intoxicated or Sedated No (0 pts) Impaired Gait No (0 pts) Mobility Assist Device Used No (0 pt) Altered Elimination No (0 pt) Score/Fall Risk Level 0 - 2 = Low Risk Oriented to surroundings, Maintained a safe environment. Abuse screen: Denies threats or abuse. Nutritional screening: No deficits noted. Tuberculosis screening: No symptoms or risk factors identified. Assessment: 09:45 General: Appears uncomfortable, Behavior is calm, cooperative. Pain: Complains of pain ar8 in right foot and left foot. Neuro: Level of Consciousness is awake, alert, obeys commands, Oriented to person, place, time, situation. Cardiovascular: Patient's skin is warm and dry. Respiratory: Airway is patent Respiratory effort is even, unlabored, Respiratory pattern is regular, symmetrical. GI: No signs and/or symptoms were reported involving the gastrointestinal system. : No signs and/or symptoms were reported regarding the genitourinary system. EENT: No signs and/or symptoms were reported regarding the EENT system. Derm: Reports swelling noted to left proximal joint of great toe. Vital Signs: 09:30 BP 144 / 89; Pulse 72; Resp 16; Pulse Ox 100% on R/A; Weight 94.35 kg; Height 6 ft. 0 iw in. ; Pain 10/10; 10:10 BP 119 / 90; Pulse 66; Resp 18; Pulse Ox 100% on R/A; ar8 09:30 Body Mass Index 28.21 (94.35 kg, 182.88 cm) iw 09:30 Pain Scale: Adult ED Course: 09:24 Patient arrived in ED. 3 09:24 [facility]amin[facility] Hager [facility] 7 09:24 Louie Peres MD is Attending Physician. [facility] 09:31 Triage completed. iw 09:31 Arm band placed on. iw 09:37 Omar Lowery, RN is Primary Nurse. ar8 09:45 Bed in low position. Call light in reach. Side rails up X2. Provided Education on: plan ar8 of care. 09:45 No provider procedures requiring assistance completed. ar8 10:14 Patient did not have IV access during this emergency room visit. ar8 Administered Medications: 09:52 Drug: Dexamethasone IM 10 mg IM once Route: IM; Site: right deltoid; db 10:10 Follow up: Response: No adverse reaction ar8 Medication: 09:45 VIS not applicable for this client. ar8 Outcome: 09:59 Discharge ordered by . jh7 10:14 Discharged to home ambulatory, ar8 10:14 Condition: stable 10:14 Discharge instructions given to patient, Instructed on discharge instructions, follow up and referral plans. medication usage, Demonstrated understanding of instructions, follow-up care, medications, Prescriptions given X 1, 10:15 Patient left the ED. ar8 Signatures: Emma Tafoya RN FRANKIE Yamini Hager FNP [employer] 7 Halima Aparicio RN RN db Johnson, Celeste 3 Omar Lowery, RN RN ar8 Corrections: (The following items were deleted from the chart) 09:31 09:30 BP 144 / 89; Pulse 72bpm; Resp 16bpm; Pulse Ox 100% RA; 94.35 kg; Height 6 ft. 0 iw in.; BMI: 28.2; iw
--- NOTE | 2025-04-11 10:00 | EDPHYS ---
Physician Documentation [facility] Name: Shane Vela Age: 45 yrs Sex: Male : 1980 Arrival Date: 04/11/2025 Time: 09:18 Bed 4 Private MD: ED Physician Louie Peres HPI: 04/11 09:31 This 45 yrs old Male presents to ER via Ambulatory with complaints of Foot Pain. [facility] 09:31 45-year-old male with a past medical history of HLD and gout presents to the ER for [facility] bilateral foot pain for the past 3 days. The patient states that he has been having gout flareups once to twice a month but is never been prescribed medication before. Complains of pain in bilateral ankles and at the base of bilateral great toes. No other symptoms/complaints.. Historical: - Allergies: 09:31 PENICILLINS; iw - PSHx: 09:31 knee; iw - Immunization history:: Adult Immunizations. - Infectious Disease History:: Denies. - Social history:: Smoking status: Patient denies any tobacco usage or history of. ROS: 09:31 Constitutional: Per HPI 7 Exam: 09:31 Constitutional: This is a well developed, well nourished patient who is awake, alert, jh7 and in no acute distress. Head/Face: Normocephalic, atraumatic. Cardiovascular: Regular rate and rhythm with a normal S1 and S2. No gallops, murmurs, or rubs. Normal PMI, no JVD. No pulse deficits. Respiratory: Lungs have equal breath sounds bilaterally, clear to auscultation and percussion. No rales, rhonchi or wheezes noted. No increased work of breathing, no retractions or nasal flaring. Abdomen/GI: Soft, non-tender, with normal bowel sounds. No distension or tympany. No guarding or rebound. No evidence of tenderness throughout. Skin: Warm, dry with normal turgor. Normal color with no rashes, no lesions, and no evidence of cellulitis. Neuro: Awake and alert, GCS 15, oriented to person, place, time, and situation. Motor strength 5/5 in all extremities. Sensory grossly intact. Normal gait. 09:31 Musculoskeletal/extremity: ROM: intact in all extremities, full active range of motion, Circulation is intact in all extremities. Pulses: are normal with no appreciated deficits, Perfusion: the extremity is normally perfused throughout, Sensation intact. Erythema and mild swelling/tenderness noted at bilateral MTP joints with tenderness noted over bilateral ankles as well. Full range of motion, but pain with weightbearing.. Vital Signs: 09:30 BP 144 / 89; Pulse 72; Resp 16; Pulse Ox 100% on R/A; Weight 94.35 kg; Height 6 ft. 0 iw in. ; Pain 10/10; 10:10 BP 119 / 90; Pulse 66; Resp 18; Pulse Ox 100% on R/A; ar8 09:30 Body Mass Index 28.21 (94.35 kg, 182.88 cm) iw 09:30 Pain Scale: Adult iw MDM: 09:25 Medical Screening Exam initiated [facility] 10:05 Differential diagnosis: gout, septic joint, cellulitis, foot sprain. Data reviewed: [facility] vital signs, nurses notes. I considered the following discharge prescriptions or medication management in the emergency department Medications were administered in the Emergency Department. See MAR. Counseling: I had a detailed discussion with the patient and/or guardian regarding the historical points, exam findings, and any diagnostic results supporting the discharge/admit diagnosis, to return to the emergency department if symptoms worsen or persist or if there are any questions or concerns that arise at home. Administered Medications: 09:52 Drug: Dexamethasone IM 10 mg IM once Route: IM; Site: right deltoid; db 10:10 Follow up: Response: No adverse reaction ar8 Disposition Summary: 04/11/25 09:59 Discharge Ordered Notes: Location: Home [facility] Problem: chronic [facility] Symptoms: are unchanged [facility] Condition: Stable [facility] Diagnosis - Gout, unspecified 7 Followup: [facility] - With: Private Physician - When: 2 - 3 days - Reason: Recheck today's complaints Discharge Instructions: - Discharge Summary Sheet [facility] - Gout [facility] Forms: - Medication Reconciliation Form [facility] - Patient Portal Instructions [facility] - Leadership Thank You Letter [facility] Prescriptions: - indomethacin 50 mg Oral capsule - take 1 capsule ORAL route 3 times per day for 7 days administer with food or jh7 milk; 21 capsule; Refills: 0, Product Selection Permitted Addendum: 04/16/2025 06:56 Co-signature as Attending Physician, Louie Peres MD I agree with the assessment and c plan of care. Signatures: Louie Peres MD MD cha Williams, Irene, RN RN Yamini Bonner FNP [employer]INATAL INSTRUCTOR jh7 Halima Aparicio RN RN Omar Crowe RN ar8
[2025-04-11 10:24] VITALS: O2SAT 100
[2025-04-11 10:25] VITALS: BP 119/90
== END 2025-04-11 10:15 | disposition home or self-care (01) ==
LOC: ER 09:18
DX: M10.9 Gout, unspecified (principal); M79.671 Pain in right foot
CPT/HCPCS: 96372; 99284; J1100